=== PATIENT | male | born 1970 | race Two or more races ===

== ENCOUNTER → 2017-06-13 | Outpatient (CLI) | payer OTHER | LOC: BMCIMAGING 11:11 | PROVIDERS: ATTEND Family Medicine | DX: M25.461 Effusion, right knee (principal); X50.3XXA Overexertion from repetitive movements, initial encounter ==

== ENCOUNTER 2017-09-08 22:54 | Emergency (ER) | payer OTHER ==
[2017-09-08] MEDS ORDERED: ONDANSETRON 4 MG/2 ML VIAL IVP ONE (23:04)
[2017-09-08] MEDS ORDERED: NS 1,000 ML IV ONE (23:04)
[2017-09-08 23:07] VITALS: TEMP 97.5; O2SAT 95
--- NOTE | 2017-09-08 23:24 | EDPHY ---
H & P Time Seen by Provider: 09/08/17 23:30 HPI/ROS: CC: Epigastric pain, vomiting HPI: This 47-year-old male with no known past medical history presents to the emergency department tonight with his complaining of vomiting x 2 this evening and epigastric discomfort. Two days ago his whole stomach felt bloated and then yesterday he had epigastric discomfort that was intermittent. He described it as sharp and lasting about 20 min at a time. Nothing seemed to help the discomfort. He tried Pepto-Bismol and ibuprofen. He had a normal bowel movement today. He does not know if anything aggravated his symptoms but his states that they had company in town in they did go out to eat quite a few times over the weekend. The pain was 9/10 at its worst and is about a 2/10 currently. When he vomited this evening he states it was clear like "spit". There was no radiation of the pain to his back, chest, arms, neck, or jaw. He did not have a measurable fever but states he felt chilled and sweaty the other night. He had some water this evening and cereal this morning. He has not had prior episodes of this sort. His last physical exam was 7 years ago. He has no primary care provider. No ill contacts. REVIEW OF SYSTEMS: Constitutional: See HPI. Eyes: No discharge. ENT: No sore throat. Respiratory: No cough, no shortness of breath. Cardiac: No chest pain, no palpitations. Gastrointestinal: See HPI. Genitourinary: No hematuria or dysuria. Musculoskeletal: No back pain. Skin: No rashes. Neurological: No headache. Source: Patient, Family () Exam Limitations: No limitations - Medical/Surgical History PMH: Denied Other PMH: PSH: Tonsillectomy; Toe surgery - Family History Significant Family History: Cancer (Father - from Prostate Cancer), Other ( Brother - Juvenile Arthritis) - Social History Smoking Status: Never smoked Alcohol Use: None Drug Use: None Additional Social History: - Physical Exam Exam: General Appearance: Alert, mild distress. Eyes: Pupils equal and round no pallor or injection. ENT, Mouth: Mucous membranes are moist. Respiratory: There are no retractions, lungs are clear to auscultation bilaterally. Cardiovascular: Regular rate and rhythm. No murmurs, gallops or rubs. Gastrointestinal: Abdomen is soft with mild TTP over LLQ and epigastrium, no pulsatile masses, bowel sounds normal. No rebound, guarding or rigidity. Back: No CVA tenderness to percussion. Neurological: Awake and alert, sensory and motor exams grossly normal. Skin: Warm and dry, no rashes. Musculoskeletal: Neck is supple nontender. Extremities are symmetrical, full range of motion. Psychiatric: Patient is oriented X 3, there is no agitation. Constitutional: Initial Vital Signs Temperature (C) 97.5 F 09/08/17 23:05 Heart Rate 59 L 09/08/17 23:05 Respiratory Rate 16 09/08/17 23:05 Blood Pressure 127/73 H 09/08/17 23:05 O2 Sat (%) 95 09/08/17 23:05 O2 Delivery Mode Room Air Allergies/Adverse Reactions: No Known Allergies Allergy (Unverified 09/08/17 23:04) Home Medications: Medication Instructions Recorded Ondansetron Odt [Zofran Odt 4 mg 4 mg PO Q4 3 Days #6 tab 09/09/17 (*)] Medical Decision Making - Diagnostics EKG Interpretation: Normal sinus rhythm, heart rate 61. First degree AV block. Borderline T-wave abnormalities diffuse leads. No evidence of acute ischemia. No prior EKG for comparison. Imaging Results: Two-view abdomen with one view chest revealed a nonspecific bowel gas pattern with air fluid levels on the right. Moderate stool. No significantly dilated loops of bowel or evidence of obstruction. There is radiopaque material scattered throat his stool which could be consistent with ingested medications. No infiltrate. Heart size normal. This is per my read. Please refer to the final radiology report. Imaging: I viewed and interpreted images myself ED Course/Re-evaluation: The patient was seen and examined. Vital signs were reviewed and without overly concerning abnormalities. The patient received IV fluids for hydration as well as Zofran and Pepcid IV push. His EKG showed no acute ischemia, a first -degree AV block and borderline T-wave abnormalities diffusely. Abdominal x- ray showed no obstruction. His CBC revealed a normal white blood cell count. The patient was not anemic. His platelets were normal as well. Chemistry was significant only for a very mild hypokalemia which can be corrected with diet. His calcium was also slightly low. His liver function tests and lipase were normal. His troponin was normal. The patient is feeling better and is ready to go home. He was given a referral for a primary care provider and advised to follow up with the 1st available appointment. However it is a few days before [facility] and he may have difficulty getting in. I have advised him to return to the emergency room if symptoms persist, worsen or change as discussed. He was given a take-home pack of Zofran as well as a prescription for same. He may try an [id number] H2 melanie or proton pump inhibitor as well as Mylanta or Maalox. Differential Diagnosis: Abdominal pain including but not limited to cardiac, cholecystitis, biliary colic, gastritis, bowel obstruction, viral illness - Data Points Laboratory Results: Laboratory Results 09/08/17 23:20 09/08/17 23:20 09/08/17 09/08/17 09/08/17 23:20 23:20 23:20 WBC 7.86 10^3/uL 10^3/uL (3.80-9.50) RBC 5.31 10^6/uL 10^6/uL (4.40-6.38) Hgb 15.7 g/dL g/dL (13.7-17.5) Hct 43.2 % % (40.0-51.0) MCV 81.4 fL L fL (81.5-99.8) MCH 29.6 pg pg (27.9-34.1) MCHC 36.3 g/dL g/dL (32.4-36.7) RDW 12.4 % % (11.5-15.2) Plt Count 263 10^3/uL 10^3/uL (150-400) MPV 9.3 fL fL (8.7-11.7) Neut % (Auto) 73.4 % % (39.3-74.2) Lymph % (Auto) 16.5 % % (15.0-45.0) [place] % (Auto) 8.7 % % (4.5-13.0) Eos % (Auto) 0.8 % % (0.6-7.6) Baso % (Auto) 0.3 % % (0.3-1.7) Nucleat RBC Rel Count 0.0 % % (0.0-0.2) Absolute Neuts (auto) 5.78 10^3/uL 10^3/uL (1.70-6.50) Absolute Lymphs (auto) 1.30 10^3/uL 10^3/uL (1.00-3.00) Absolute Monos (auto) 0.68 10^3/uL 10^3/uL (0.30-0.80) Absolute Eos (auto) 0.06 10^3/uL 10^3/uL (0.03-0.40) Absolute Basos (auto) 0.02 10^3/uL 10^3/uL (0.02-0.10) Absolute Nucleated RBC 0.00 10^3/uL 10^3/uL (0-0.01) Immature Gran % 0.3 % % (0.0-1.1) Immature Gran # 0.02 10^3/uL 10^3/uL (0.00-0.10) VBG Lactic Acid 0.9 mmol/L mmol/L (0.7-2.1) Sodium 141 mEq/L mEq/L (134-144) Potassium 3.4 mEq/L L mEq/L (3.5-5.2) Chloride 103 mEq/L mEq/L (97-110) Carbon Dioxide 23 mEq/l mEq/l (22-31) Anion Gap 15 mEq/L mEq/L (8-16) BUN 12 mg/dL mg/dL (7-23) Creatinine 0.8 mg/dL mg/dL (0.7-1.3) Estimated GFR > 60 Glucose 89 mg/dL mg/dL (70-100) Calcium 8.4 mg/dL L mg/dL (8.5-10.4) Total Bilirubin 0.2 mg/dL mg/dL (0.1-1.4) Conjugated Bilirubin 0.1 mg/dL mg/dL (0.0-0.5) Unconjugated Bilirubin 0.1 mg/dL mg/dL (0.0-1.1) AST 24 IU/L IU/L (17-59) ALT 66 IU/L IU/L (21-72) Alkaline Phosphatase 104 IU/L IU/L (38-126) Troponin I < 0.012 ng/mL ng/mL (0.000-0.034) Total Protein 6.5 g/dL g/dL (6.3-8.2) Albumin 3.4 g/dL L g/dL (3.5-5.0) Lipase 97 IU/L IU/L (23-300) Medications Given: Discontinued Medications Famotidine (Pepcid) 20 mg IVP EDNOW ONE Stop: 09/09/17 00:08 Last Admin: 09/09/17 00:18 Dose: 20 mg Sodium Chloride (Ns) 1,000 mls @ 0 mls/hr IV EDNOW ONE; Wide Open PRN Reason: Protocol Stop: 09/08/17 23:05 Last Admin: 09/08/17 23:20 Dose: 1,000 mls Ondansetron HCl (Zofran) 4 mg IVP EDNOW ONE Stop: 09/08/17 23:05 Last Admin: 09/08/17 23:19 Dose: 4 mg Departure - Departure Disposition: Home, Routine, Self-Care Clinical Impression: Nausea & vomiting Abdominal pain Qualifiers: Abdominal location: epigastric Qualified Code(s): R10.13 - Epigastric pain Condition: Good Instructions: Ondansetron (By mouth), Acute Nausea and Vomiting (ED), Epigastric Pain (ED) Additional Instructions: [place], low fat diet and advance as tolerated. Consider Pepcid OR Zantac OR Prilosec OTC. Also consider Mylanta or Maalox. Establish care and follow up with a primary care provider at the first available appointment. Return to the ER immediately if chest pain, persistent pain, continued vomiting, fever, bloody stool or any other concerns as discussed. Referrals: NONE *PRIMARY CARE P,. [Primary Care Provider] - As per Instructions Manuel Ervin MD [Medical Doctor] - As per Instructions Prescriptions: Ondansetron Odt [Zofran Odt 4 mg (*)] 4 mg PO Q4 3 Days #6 tab
[2017-09-08 23:29] LABS: % IMMATURE GRANULYOCYTES 0.3 % (0.0-1.1); ABSOLUTE IMMATURE GRANULOCYTES 0.02 10^3/uL (0.00-0.10); ADD DIFF? NO; ADD MORPH? NO; ADD SCAN? NO; ATYPICAL LYMPHOCYTE FLAG 0 (0-99); FRAGMENT RBC FLAG 0 (0-99); HEMATOCRIT 43.2 % (40.0-51.0); HEMOGLOBIN 15.7 g/dL (13.7-17.5); LEFT SHIFT FLG 0 (0-99); LIPEMIA HEMOLYSIS FLAG 90 (0-99); MEAN CELL HEMOGLOBIN 29.6 pg (27.9-34.1); MEAN CELL HEMOGLOBIN CONCENTR. 36.3 g/dL (32.4-36.7); MEAN CELL VOLUME 81.4 fL (81.5-99.8); MEAN PLATELET VOLUME 9.3 fL (8.7-11.7); PLATELET CLUMPS FLAG 10 (0-99); PLATELET COUNT 263 10^3/uL (150-400); RED BLOOD CELL COUNT 5.31 10^6/uL (4.40-6.38); RED CELL DISTRIBUTION WIDTH 12.4 % (11.5-15.2)
--- NOTE | 2017-09-08 23:33 | CPEKG ---
Heart Rate: 61 RR Interval: 984 P-R Interval: 212 QRSD Interval: 84 QT Interval: 404 QTC Interval: 407 P Eugene: 64 QRS Eugene: 6 T Wave Eugene: -44 EKG Severity - ABNORMAL ECG - EKG Impression: SINUS RHYTHM EKG Impression: FIRST DEGREE AV BLOCK EKG Impression: BORDERLINE T ABNORMALITIES, DIFFUSE LEADS Electronically Signed By: Jackie Nixon 09-Sep-2017 01:15:12
[2017-09-08 23:43] LABS: ALANINE AMINOTRANSFERASE 66 IU/L (21-72); ALBUMIN 3.4 g/dL (3.5-5.0); ALKALINE PHOSPHATASE 104 IU/L (38-126); ANION GAP 15 mEq/L (8-16); ASPARTATE AMINOTRANSFERASE 24 IU/L (17-59); BILIRUBIN,TOTAL 0.2 mg/dL (0.1-1.4); BILIRUBIN-CONJUGATED 0.1 mg/dL (0.0-0.5); BILIRUBIN-UNCONJUGATED 0.1 mg/dL (0.0-1.1); CALCIUM 8.4 mg/dL (8.5-10.4); CARBON DIOXIDE 23 mEq/l (22-31); CHLORIDE 103 mEq/L (97-110); CREATININE 0.8 mg/dL (0.7-1.3); GLOMERULAR FILTRATION RATE > 60; GLUCOSE 89 mg/dL (70-100); POTASSIUM 3.4 mEq/L (3.5-5.2); SODIUM 141 mEq/L (134-144); TOTAL PROTEIN 6.5 g/dL (6.3-8.2)
[2017-09-08 23:53] LABS: TROPONIN I < 0.012 ng/mL (0.000-0.034)
[2017-09-09] MEDS ORDERED: FAMOTIDINE 20 MG/2 ML SDV IVP ONE (00:07)
[2017-09-09] MEDS ORDERED: FAMOTIDINE 20 MG/2 ML SDV ONE (00:07)
[2017-09-09] MEDS ORDERED: ONDANSETRON 4MG PREPACK#2 BTL TAKEHOME ONE ×2 (00:32→00:36)
[2017-09-09 00:45] VITALS: BP 124/78; PULSE 65; RESP 12
== END 2017-09-09 00:56 | disposition home or self-care (01) ==
LOC: CED 22:54
DX: R10.13 Epigastric pain (principal); R11.2 Nausea with vomiting, unspecified; E86.9 Volume depletion, unspecified
CPT/HCPCS: 74022-PO; 80048-PO; 80076-PO; 83605-PO; 83690-PO; 84484-PO; 85025-PO; 96374; J2405